=== PATIENT | female | born 1940 | race Caucasian/White ===

== ENCOUNTER → 2017-01-10 | Outpatient (CLI) | payer OTHER ==
--- NOTE | ~2017-01-10 | 2DMMODE ---
[facility] [address] [place] [address] 2 D/M-MODE ECHOCARDIOGRAM Name: WILMERFELECIARUDYChrystal NICO Room #: REG [facility]#: [id number] Admission: 01/10/17 Attend Phys: Omid Layne Discharge: Date of : 40 Date of Service: 01/10/17 1321 Report #: [id number] THIS REPORT FOR: //name// APPROVED REPORT Study performed: 01/10/2017 09:12:45 EXAM: Comprehensive 2D, Doppler, and color-flow Echocardiogram Patient Location: Out-Patient Room #: Echo lab Other Information Study Quality: Adequate Risk Factors: Cardiac Risk Factors: DM, HTN, Hyperlipidemia Indications Diabetes Hypertension/HDD 2D Dimensions RVDd: 31.40 mm LVEF(%): 60.02 (>50%) IVSd: 10.94 (7-11mm) LVOT Diam: 18.22 (18-24mm) LVDd: 46.49 mm PWd: 11.07 (7-11mm) Ascending Ao: 32.91 (22-36mm) LVDs: 31.65 (25-40mm) Aortic Root: 30.51 mm IVC: 21.00 mm Fields's LVEF: 60.02 % Volumes Left Atrial Volume (Systole) Single Plane 4CH: 39.61 mL Single Plane 2CH: 38.45 mL LA ESV Index: 23.00 mL/m2 Aortic Valve AoV Peak Kaden.: 1.81 m/s AO Peak Gr.: 13.10 mmHg LVOT Max P.37 mmHg LVOT Max V: 1.36 m/s MARGIE Vmax: 1.96 cm2 Mitral Valve E/A Ratio: 0.9 [facility] [place] [address] [place] [address] 2 D/M-MODE ECHOCARDIOGRAM Name: SIGRID GUILLEN Room #: REG [facility]#: [id number] Admission: 01/10/17 Attend Phys: Omid Layne Discharge: Date of : 40 Date of Service: 01/10/17 1321 Report #: [id number] MV Decel. Time: 281.21 ms MV E Max Kaden.: 1.10 m/s MV A Kaden.: 1.29 m/s MV PHT: 81.55 ms IVRT: 106.11 ms Pulmonary Valve PV Peak Kaden.: 1.20 m/s PV Peak Gr.: 5.74 mmHg Pulmonary Vein P Vein S: 0.73 m/s P Vein A: 0.25 m/s P Vein D: 0.54 m/s P Vein A Dur.: 101.5 msec P Vein S/D Ratio: 1.35 Tricuspid Valve TR Peak Kaden.: 2.72 m/s RAP Estimate: 10.00 mmHg TR Peak Gr.: 29.59 mmHg PA Pressure: 40.00 mmHg Left Ventricle The left ventricle is normal size. There is normal left ventricular wall thickness. The left ventricular systolic function is normal. The left ventricular ejection fraction is within the normal range. LVEF is 60-65%. Grade I - abnormal relaxation pattern. Right Ventricle The right ventricle is normal size. The right ventricular systolic function is normal. Atria The left atrium size is normal. The right atrium size is normal. Aortic Valve The aortic valve is normal in structure. Aortic valve is calcified. Trace aortic regurgitation. There is no aortic valvular stenosis. Mitral Valve The mitral valve is normal in structure. Trace mitral regurgitation. No evidence of mitral valve stenosis. Tricuspid Valve The tricuspid valve is normal in structure. There is mild tricuspid regurgitation. The right atrial pressure is estimated at 10 mmHg. There is mild-moderate pulmonary hypertension. [address] [address] 2 D/M-MODE ECHOCARDIOGRAM Name: ISGRID GUILLEN NICO Room #: REG CL Shilpi#: [id number] Admission: 01/10/17 Attend Phys: Omid Layne Discharge: Date of : 40 Date of Service: 01/10/17 1321 Report #: [id number] Pulmonic Valve The pulmonary valve is normal in structure. Trace pulmonic regurgitation. Great Vessels The aortic root is normal in size. IVC is dilated and collapses >50% with inspiration. Pericardium There is no pericardial effusion. <Conclusion> The left ventricle is normal size. LVEF is 60-65%. The aortic valve is normal in structure. Aortic valve is calcified. Trace aortic regurgitation. There is no aortic valvular stenosis. The mitral valve is normal in structure. Trace mitral regurgitation. The tricuspid valve is normal in structure. There is mild tricuspid regurgitation. The right atrial pressure is estimated at 10 mmHg. There is mild-moderate pulmonary hypertension. The pulmonary valve is normal in structure. Trace pulmonic regurgitation. <ELECTRONICALLY SIGNED> By: Omid Mejia MD 01/10/17 132 20 20 mOid Mejia MD /INF
== END ==
LOC: NUC 07:42
DX: R07.9 Chest pain, unspecified (principal); I10 Essential (primary) hypertension; E11.9 Type 2 diabetes mellitus without complications; E78.5 Hyperlipidemia, unspecified

== ENCOUNTER → 2019-06-25 | Outpatient (CLI) | payer OTHER ==
--- NOTE | 2019-06-26 08:38 | 2DMMODE ---
[facility] [place] [address] 2 D/M-MODE ECHOCARDIOGRAM Name: SIGRID GUILLEN NICO Room #: REG [facility]#: [id number] Admission: 06/25/19 Attend Phys: Omid Layne Discharge: Date of : 40 Report #: [id number] THIS REPORT FOR: //name// APPROVED REPORT Study performed: 06/25/2019 10:56:48 EXAM: Comprehensive 2D, Doppler, and color-flow Echocardiogram Patient Location: Out-Patient Status: routine BSA: 1.87 HR: 66 bpm BP: 136/88 mmHg Rhythm: NSR Other Information Study Quality: Adequate Indications Dyspnea on exertion. Hx: HTN, HLP, DM, strong family history. 2D Dimensions RVDd: 31.32 mm IVSd: 12.43 (7-11mm) LVOT Diam: 19.55 (18-24mm) LVDd: 43.61 mm PWd: 12.19 (7-11mm) LVDs: 30.01 (25-40mm) Aortic Root: 32.83 mm Volumes Left Atrial Volume (Systole) Single Plane 4CH: 39.24 mL Single Plane 2CH: 33.43 mL LA ESV Index: 16.00 mL/m2 Aortic Valve AoV Peak Kaden.: 1.83 m/s AO Peak Gr.: 13.36 mmHg LVOT Max P.97 mmHg LVOT Max V: 1.32 m/s MARGIE Vmax: 2.17 cm2 Mitral Valve E/A Ratio: 0.8 MV Decel. Time: 329.17 ms [facility] [address] [place] [address] 2 D/M-MODE ECHOCARDIOGRAM Name: SIGRID GUILLEN Room #: REG CL [facility]#: [id number] Admission: 06/25/19 Attend Phys: Omid Layne Discharge: Date of : 40 Report #: [id number] MV E Max Kaden.: 1.11 m/s MV A Kaden.: 1.41 m/s MV PHT: 95.46 ms IVRT: 78.43 ms Pulmonary Valve PV Peak Kaden.: 1.16 m/s PV Peak Gr.: 5.41 mmHg Pulmonary Vein P Vein S: 0.57 m/s P Vein A: 0.28 m/s P Vein D: 0.37 m/s P Vein A Dur.: 129.2 msec P Vein S/D Ratio: 1.54 Tricuspid Valve TR Peak Kaden.: 2.39 m/s RAP Estimate: 5.00 mmHg TR Peak Gr.: 23.00 mmHg PA Pressure: 28.00 mmHg Left Ventricle The left ventricle is normal size. There is normal LV segmental wall motion. Mild concentric left ventricular hypertrophy. Left ventricular systolic function is normal. LVEF is 60-65%. Mild diastolic dysfunction is present (impaired relaxation pattern). Right Ventricle The right ventricle is normal size. The right ventricular systolic function is normal. Atria The left atrium size is normal. The right atrium size is normal. Aortic Valve The aortic valve leaflets are mildly calcified. Mild aortic regurgitation. There is no aortic valvular stenosis. Mitral Valve Moderate mitral annular calcification. Mild mitral regurgitation. No evidence of mitral valve stenosis. Tricuspid Valve Tricuspid valve is not well visualized. Trace tricuspid regurgitation. Estimated PAP is 25-30mmHg. Pulmonic Valve [facility] [place] [address] 2 D/M-MODE ECHOCARDIOGRAM Name: WILMERSIGRID Room #: REG [facility]#: [id number] Admission: 06/25/19 Attend Phys: Omid Layne Discharge: Date of : 40 Report #: [id number] Pulmonic valve is not well visualized. Great Vessels The aortic root is normal in size. IVC is normal in size and collapses >50% with inspiration. Pericardium There is no pericardial effusion. <Conclusion> Left ventricular systolic function is normal. There is normal LV segmental wall motion. LVEF is 60-65%. Mild diastolic dysfunction The aortic valve leaflets are mildly calcified. Mild aortic regurgitation, no stenosis. Moderate mitral annular calcification. Mild mitral regurgitation. Trace tricuspid regurgitation. Estimated pulmonary artery pressure of 25-30mmHg. There is no pericardial effusion. <ELECTRONICALLY SIGNED> By: Patrick Marks MD, [facility] 06/26/19837 7 7 Patrick Marks MD, [facility] /INF
== END ==
LOC: NUC 06-13 11:01
DX: R06.09 Other forms of dyspnea (principal); I10 Essential (primary) hypertension; E78.5 Hyperlipidemia, unspecified; E11.51 Type 2 diabetes mellitus with diabetic peripheral angiopathy without gangrene; Z87.891 Personal history of nicotine dependence; Z79.4 Long term (current) use of insulin; Z79.899 Other long term (current) drug therapy